=== PATIENT | female | born 1990 | race Caucasian/White ===

== ENCOUNTER 2016-11-03 14:44 | Outpatient (CLI) | payer SELFPAY ==
[2016-11-03 17:58] LABS: Urine Drugs of Abuse Note Disclamer
[2016-11-03 18:03] LABS: Basophils % (Auto) 0.2 % (0.0-1.8); Eosinophils % (Auto) 0.8 % (0.0-4.3); Hematocrit 33.3 % (30.3-42.9); Hemoglobin 10.4 gm/dl (10.1-14.3); Mean Corpuscular HGB Conc 31 % (30-34); Mean Corpuscular Volume 76 fl (79-97); Platelet Count 201 K/mm3 (140-440); Red Blood Count 4.42 M/mm3 (3.65-5.03); Red Cell Distribution Width 16.8 % (13.2-15.2); White Blood Count 10.8 K/mm3 (4.5-11.0)
[2016-11-03 18:04] LABS: Mean Corpuscular Hemoglobin 24 pg (28-32)
[2016-11-03 18:11] LABS: Bacteria,Urine 1+ /HPF (Negative); Bilirubin,Urine NEG (Negative); Blood,Urine NEG (Negative); Ketones,Urine NEG (Negative); Leukocyte Esterase,Urine LG (Negative); Mucus,Urine FEW /HPF; Nitrite,Urine NEG (Negative); Protein,Urine <15 mg/dL mg/dL (Negative); Urobilinogen,Urine < 2.0 mg/dL (<2.0)
[2016-11-03 18:49] LABS: HIV-1 Antigen p24 Non React (Non React); HIVR-1/2 Ab Non React (Non React)
--- NOTE | 2016-11-04 07:38 | Ultrasound Report ---
BIOPHYSICAL PROFILE: INDICATION: Vaginal bleeding. No care. COMPARISON: None similar during this gestation. TECHNIQUE: Transabdominal ultrasound with Doppler interrogation. 0 - breathing movements 2 - movements 2 - posture and tone 2 - Qualitative amniotic fluid volume 6 - TOTAL SCORE OF POSSIBLE 8 Heart Rate (bpm) 150
--- NOTE | 2016-11-04 10:36 | Ultrasound Report ---
OB ULTRASOUND GREATER THAN 14 WEEKS: INDICATION: Vaginal bleeding. No care. COMPARISON: None similar. TECHNIQUE: Transabdominal grayscale ultrasound with Doppler interrogation. Few translabial images to evaluate the cervix also obtained. Gestation: forde Position: cephalic Amniotic Fluid: WNL (7-24 cm) REINIER = 11.5 cm Placenta: anterior Placental Grade: I Heart Rate: 143 BPM Cervical length: 4.9 cm (Normal > 3 cm) ANATOMY VISUALIZED: Stomach Kidneys Bladder Diaphragm 4 Chamber Heart Heart 3 Vessel Cord Abd. Cord Insert SPINE VISUALIZED: Longitudinal Transverse Limited spine due to position The following are not demonstrated due to maternal body habitus or lie: neuroanatomy and spine. Cephalic index and HC/AC out of range. BPD: 9.2 cm = 37 w 3 d HC: 34 cm = 39 w 1 d AC: 33.7 cm = 37 w 4 d FL: 7.9 cm = 40 w 3 d HC/AC Ratio: 1.0 Cephalic Index: 80.2 Estimated Weight: 3485 grams Clinical age = 41 w 2 d EDC: 10-25-16 US Gest. Age = 38 w 5 d EDC: 11-12-16 CONCLUSION: Single, viable intrauterine gestation with ultrasound estimated age of 38 weeks and 5 days and EDC of 11/12/2016, currently in cephalic lie with details, as above. Please also correlate for a little over 2 weeks discrepancy with the clinical age. Thank you for the opportunity to participate in this patient's care.
== END 2016-11-03 17:29 | disposition home or self-care (01) ==
LOC: TRG 14:44
PROVIDERS: ATTEND Obstetrics & Gynecology Gynecology
DX: O46.93 Antepartum hemorrhage, unspecified, third trimester (principal); O47.1 False labor at or after 37 completed weeks of gestation; Z3A.38 38 weeks gestation of pregnancy
CPT/HCPCS: 36415; 76805; 76819; 81001; 85025; 86592; 86706; 86762; 86803; 86850; 86900; 86901; 87116; 87806; G0479; 80307

== ENCOUNTER 2016-11-20 21:57 | Inpatient (IN) | payer OTHER ==
[2016-11-20] MEDS ORDERED: PITOCin/NS 20 UNIT/1000ML DRIP 1,000 ML IV ONE (22:09)
[2016-11-20] MEDS: PITOCin/NS 20 UNIT/1000ML DRIP 1,000 ML IV SCH ×2 (22:20→23:25)
--- NOTE | 2016-11-20 22:26 | History and Physical Report ---
History of Present Illness Date of examination: 11/20/16 Date of admission: 11/20/16 21:57 Chief complaint: Just delivered History of present illness: Pt is a 26yo HF EDC 11/13/16; EGA 41 0/7 weeks presents to [facility] L&D and delivered in the parking lot. She did not receive care with this . Past History Past Medical History: no pertinent history Past Surgical History: no surgical history Family/Genetic History: none Social history: no significant social history, single - Obstetrical History : 3 Medications and Allergies Allergies Allergy/AdvReac Type Severity Reaction Status Date / Time No Known Allergies Allergy Verified 09/21/14 12:31 Home Medications Medication Instructions Recorded Confirmed Last Taken Type Kuu400/Iron Fumarate/FA/Dss 1 tab PO DAILY 09/21/14 09/26/14 09/24/14 10:00 History [ 19 Tablet] Review of Systems All systems: negative - Vital Signs Vital signs: Vital Signs Pulse BP 71 125/58 11/20/16 22:02 11/20/16 22:02 Temp Pulse Resp BP Pulse Ox 86 142/68 11/20/16 22:18 11/20/16 22:18 - Physical Exam Breasts: Positive: deferred Cardiovascular: Regular rate Lungs: Positive: Clear to auscultation Abdomen: Positive: normal appearance, soft Genitourinary (Female): Positive: normal external genitalia Uterus: Positive: enlarged Extremities: Positive: normal Results All other labs normal. Assessment and Plan - Patient Problems (1) Post term , 41 weeks Diagnosis Date: 11/20/16 Current Visit: No Status: Acute Plan to address problem: A: IUP @ 41 weeks s/p Precipitous delivery P: Admit to L&D for delivery of placenta Obtain labs
[2016-11-20] MEDS ORDERED: STADOL IV PRN (22:27)
[2016-11-20] MEDS ORDERED: MINERAL OIL PO PRN (22:27)
[2016-11-20] MEDS ORDERED: BRETHINE IVP PRN (22:27)
[2016-11-20] MEDS ORDERED: BRETHINE SUB-Q PRN (22:27)
[2016-11-20] MEDS ORDERED: ePHEDrine SULFATE IV PRN (22:27)
--- NOTE | 2016-11-20 22:27 | Procedure Note ---
OB Delivery Note - Delivery Date of Delivery: 11/20/16 Surgeon: ONESIMO TROY Estimated blood loss: 200cc - Vaginal Delivery presentation: vertex Delivery position: OA Intrapartum events: no care Delivery induction: none Delivery monitor: none Route of delivery: Delivery placenta: spontaneous Episiotomy: none Delivery laceration: none Anesthesia: none - Infant A at 1 minute: 8 at 5 minutes: 9 Infant Gender: Female (3761gms)
[2016-11-20] MEDS ORDERED: NORCO 5/325 PO PRN (22:31)
[2016-11-20] MEDS ORDERED: BENADRYL PO PRN (22:31)
[2016-11-20] MEDS ORDERED: ZOFRAN IV PRN (22:31)
[2016-11-20] MEDS ORDERED: TUCKS PAD TP PRN (22:31)
[2016-11-20] MEDS ORDERED: PHENERGAN PR PRN (22:31)
[2016-11-20] MEDS ORDERED: MILK OF MAGNESIA PO PRN (22:31)
[2016-11-20] MEDS ORDERED: DERMOPLAST TP PRN (22:31)
[2016-11-20] MEDS ORDERED: DULCOLAX PR PRN (22:31)
[2016-11-20] MEDS ORDERED: PHENERGAN PO PRN (22:31)
[2016-11-20] MEDS ORDERED: LANSINOH TP PRN (22:31)
[2016-11-20] MEDS ORDERED: TYLENOL PO PRN (22:31)
[2016-11-20 22:50] LABS: Hematocrit 33.7 % (30.3-42.9); Hemoglobin 10.6 gm/dl (10.1-14.3); Mean Corpuscular HGB Conc 31 % (30-34); Mean Corpuscular Volume 72 fl (79-97); Platelet Count 206 K/mm3 (140-440); Red Blood Count 4.71 M/mm3 (3.65-5.03); Red Cell Distribution Width 17.1 % (13.2-15.2); White Blood Count 11.6 K/mm3 (4.5-11.0)
[2016-11-20 22:51] LABS: Mean Corpuscular Hemoglobin 22 pg (28-32)
[2016-11-20] MEDS ORDERED: SODIUM CHLORIDE FLUSH SYRINGE 10 ML IV PRN (23:00)
[2016-11-20] MEDS ORDERED: LACTATED RINGERS 1,000 ML IV SCH (23:00)
[2016-11-20] MEDS ORDERED: PITOCin/NS 30 UNIT/500ML 500 ML IV SCH (23:00)
[2016-11-20] MEDS ORDERED: PITOCin/NS 20 UNIT/1000ML DRIP 1,000 ML IV SCH (23:00)
[2016-11-21] MEDS: MOTRIN PO SCH ×5 (00:09→23:20)
[2016-11-21 01:35] LABS: Hematocrit 34.7 % (30.3-42.9); Hemoglobin 10.9 gm/dl (10.1-14.3)
[2016-11-21] MEDS: COLACE PO SCH ×2 (10:30→23:20)
[2016-11-21] MEDS: FEOSOL PO SCH ×2 (10:30→23:20)
[2016-11-21] MEDS: PRENATAL VITAMIN PO SCH (10:31)
[2016-11-21 11:19] LABS: Hematocrit 29.3 % (30.3-42.9); Hemoglobin 9.2 gm/dl (10.1-14.3)
--- NOTE | 2016-11-21 11:29 | Progress Note ---
Assessment and Plan - Patient Problems (1) Post term , 41 weeks Diagnosis Date: 11/20/16 Current Visit: No Status: Resolved (2) (normal spontaneous vaginal delivery) Diagnosis Date: 11/21/16 Current Visit: No Status: Resolved Plan to address problem: A: S/P - PPD #1 Doing well P: May go home tomorrow. Subjective - Subjective Date of service: 11/21/16 Principal diagnosis: s/p - PPD #1 Interval history: Pt is feeling well without complaints. Bleeding improved. Patient reports: appetite normal, voiding normally, pain well controlled, flatus , ambulating normally : doing well, bottle feeding Objective - Vital Signs Latest vital signs: Vital Signs Temp Pulse Pulse Resp BP BP 11/21/16 08:55 97.9 F 76 20 98/55 11/21/16 06:06 18 11/21/16 05:19 18 11/21/16 04:19 18 11/21/16 04:15 97.8 F 51 L 18 100/54 11/21/16 01:09 18 11/21/16 00:09 18 11/21/16 00:05 97.9 F 58 L 18 108/60 11/20/16 23:17 59 L 108/59 11/20/16 23:02 63 110/57 11/20/16 22:47 65 109/58 11/20/16 22:40 18 11/20/16 22:32 66 124/58 11/20/16 22:20 97.0 F L 18 11/20/16 22:18 86 142/68 11/20/16 22:02 71 125/58 Intake and Output 11/20/16 11/21/16 11/21/16 22:59 06:59 14:59 Intake Total 1365 120 Output Total 1100 600 Balance 265 -480 Intake: Oral 360 120 Other 1005 Output: Urine 1100 600 Void 1100 600 Other: Intake, Other Source Saline Solution Total, Intake Amount 120 120 Total, Output Amount 800 600 # Voids Void 1 Weight 76.204 kg Estimated Blood Loss 200 - Exam Breasts: Present: deferred Cardiovascular: Present: Regular rate Lungs: Present: Clear to auscultation Abdomen: Present: normal appearance, soft Uterus: Present: normal, firm, fundal height below umbilicus Extremities: Present: normal - Labs Labs: Abnormal lab results 11/20/16 Range/Units 22:05 WBC 11.6 H (4.5-11.0) K/mm3 MCV 72 L (79-97) fl MCH 22 L (28-32) pg RDW 17.1 H (13.2-15.2) % Laboratory Tests 11/20/16 11/20/16 11/20/16 22:05 22:05 22:05 WBC 11.6 H RBC 4.71 Hgb 10.6 10.9 Hct 33.7 34.7 MCV 72 L MCH 22 L MCHC 31 RDW 17.1 H Plt Count 206 Blood Type A POSITIVE Antibody Screen Negative 11/21/16 06:00 WBC RBC Hgb Hct MCV MCH MCHC RDW Plt Count Blood Type A POSITIVE Antibody Screen Negative
--- NOTE | 2016-11-21 11:41 | Discharge Summary ---
Providers - Providers Date of Admission: 11/20/16 21:57 Date of discharge: 11/22/16 Attending physician: UZIEL TROY Primary care physician: UZIEL TROY Hospitalization Reason for admission: active labor, other (No care) Delivery: Episiotomy: none Laceration: none Other procedures: none complications: none Discharge diagnosis: IUP at term delivered baby: male Hospital course: Unremarkable. Condition at discharge: Good Disposition: DISCHARGED TO HOME OR SELFCARE - Discharge Diagnoses (1) Post term , 41 weeks Status: Resolved (2) (normal spontaneous vaginal delivery) Status: Resolved Plan - Discharge Medications Prescriptions: Ferrous Sulfate [Feosol 325 MG tab] 325 mg PO BID #60 tablet Ibuprofen [Motrin 600 MG tab] 600 mg PO Q6HR #30 tablet Vit-Fe Fumar-FA [ Vitamin] 1 each PO QDAY #30 tablet - Provider Discharge Summary Activity: routine, no sex for 6 weeks, no heavy lifting 4 weeks, no strenuous exercise Diet: routine Instructions: routine Additional instructions: [] Smoking cessation referral if applicable(refer to patient education folder for contact #) [] Refer to [facility]'s [facility] Center Booklet Call your doctor immediately for: * Fever > 100.5 * Heavy vaginal bleeding ( >1 pad per hour) * Severe persistent headache * Shortness of breath * Reddened, hot, painful area to leg or breast * Drainage or odor from incision. * Keep incision clean and dry at all times and follow doctor's instructions regarding bathing/showering - Follow up plan Follow up: UZIEL TROY MD [Primary Care Provider] - 6 Weeks
[2016-11-21 18:47] LABS: HIV-1 Antigen p24 Non React (Non React); HIVR-1/2 Ab Non React (Non React)
[2016-11-21] MEDS ORDERED: FLUARIX QUAD 2016-2017(36 MOS+) IM ONE (19:52)
[2016-11-21] MEDS ORDERED: M-M-R II VACCINE SUB-Q ONE (22:31)
[2016-11-22] MEDS: MOTRIN PO SCH ×3 (05:11→18:05)
[2016-11-22] MEDS ORDERED: BOOSTRIX IM ONE (06:00)
[2016-11-22] MEDS: FEOSOL PO SCH (11:31)
[2016-11-22] MEDS: COLACE PO SCH (11:31)
[2016-11-22] MEDS: PRENATAL VITAMIN PO SCH (11:31)
[2016-11-22] MEDS ORDERED: FLUARIX QUAD 2016-2017(36 MOS+) IM ONE (12:00)
[2016-11-22 16:58] VITALS: BP 122/65
== END 2016-11-22 22:00 | disposition home or self-care (01) | DRG 776 ==
LOC: LD 21:57 → OB 23:53
PROVIDERS: ADMIT Obstetrics & Gynecology; ATTEND Obstetrics & Gynecology
DX: Z39.0 Encounter for care and examination of mother immediately after delivery (principal)
CPT/HCPCS: 36415; 85014; 85018; 85027; 86592; 86706; 86762; 86850; 86900; 86901; 87806; 88307; 90471; 90686; 90715; G0008; J0595; J2590

== ENCOUNTER 2016-11-24 12:52 | Emergency (ER) | payer SELFPAY ==
[2016-11-24 13:33] VITALS: BP 114/69
--- NOTE | 2016-11-24 14:32 | Emergency Department Report ---
Chief Complaint: Vaginal Bleeding Stated Complaint: VAG BLEED/4 DAYS POST Time Seen by Provider: 11/24/16 14:22 - HPI History of Present Illness: 26-year-old female comes in for having some vaginal bleeding as well as feels like the symptoms hanging from her. Patient reports that she delivered on Wednesday she noticed tissue-like substance hanging from her vaginal area today. She complains of pain 7 out of 10. Patient reports she's gone through 2 pads since she's been here at the hospital today. She reports that she delivered here at the hospital with Dr. aJck as her OB specialist - Exam Vital Signs: Vital Signs 11/24/16 13:29 Temperature 98.0 F Pulse Rate 81 Respiratory 16 Rate Blood Pressure 114/69 O2 Sat by Pulse 98 Oximetry Physical Exam: Her to 3, cardiovascular S1-S2 regular rate and rhythm vaginal evaluation is able to gather what appears to be placenta or extra tissue. MSE screening note: Focused history and physical exam performed. Due to findings the following was ordered: About her evaluated patient able to collect the tissue place it and a will order urinalysis CBC ED Disposition for MSE Condition: Stable
[2016-11-24 15:23] LABS: Hemoglobin 10.5 gm/dl (10.1-14.3); Mean Corpuscular HGB Conc 31 % (30-34); Mean Corpuscular Hemoglobin 23 pg (28-32); Mean Corpuscular Volume 74 fl (79-97); Platelet Count 189 K/mm3 (140-440); Red Blood Count 4.61 M/mm3 (3.65-5.03); Red Cell Distribution Width 17.9 % (13.2-15.2); White Blood Count 7.8 K/mm3 (4.5-11.0)
--- NOTE | 2016-11-24 16:24 | Ultrasound Report ---
ULTRASOUND PELVIS COMPLETE - TRANSABDOMINAL AND TRANSVAGINAL: INDICATION: Status post vaginal delivery yesterday. Passing tissue. Evaluate for retained products of conception. COMPARISON: None similar. FINDINGS: Transabdominal and transvaginal pelvic sonography demonstrates an anteverted, uterus estimated at 13.9 x 9 x 12.5 cm. Endometrial stripe appears unremarkable towards the fundus transabdominally at approximately 1 cm, image 3, though widened to about 2.7 cm along its mid aspect and somewhat heterogeneously echogenic as on image 4 with poor delineation from the myometrium. No significant pelvic free fluid. Unremarkable right ovary measuring 5.5 x 2.3 x 3.6 cm. Left ovary obscured. CONCLUSION: 1. Mild heterogeneous echogenic prominence/thickening along the mid endometrium, presumed hemorrhagic products, though retained products of conception not entirely excluded in the given setting. 2. Unremarkable right ovary. Left ovary not visualized. Thank you for the opportunity to participate in this patient's care.
[2016-11-24 16:29] LABS: Bilirubin,Urine NEG (Negative); Blood,Urine LG (Negative); Ketones,Urine NEG (Negative); Leukocyte Esterase,Urine MOD (Negative); Mucus,Urine FEW /HPF; Nitrite,Urine NEG (Negative); Protein,Urine <15 mg/dL mg/dL (Negative); Urobilinogen,Urine < 2.0 mg/dL (<2.0)
--- NOTE | 2016-11-26 18:34 | ED Elopement Review ---
ED Pt Elopement review - Results review Lab results: Laboratory Tests 11/24/16 11/24/16 14:58 16:00 WBC 7.8 RBC 4.61 Hgb 10.5 Hct 34.0 MCV 74 L MCH 23 L MCHC 31 RDW 17.9 H Plt Count 189 Urine Color Yellow Urine Turbidity Cloudy Urine pH 8.0 H Ur Specific Nogal 1.016 Urine Protein <15 mg/dl Urine Glucose (UA) Neg Urine Ketones Neg Urine Blood Lg Urine Nitrite Neg Urine Bilirubin Neg Urine Urobilinogen < 2.0 Ur Leukocyte Esterase Mod Urine WBC (Auto) 55.0 H Urine RBC (Auto) 110.0 U Epithel Cells (Auto) 2.0 Urine Mucus Few - Call Back decision Pt Call Back Decision: Pt to F/U with PMD
== END 2016-11-24 22:27 | disposition left against medical advice (07) ==
LOC: ED 12:52
DX: N93.9 Abnormal uterine and vaginal bleeding, unspecified (principal); Z53.21 Procedure and treatment not carried out due to patient leaving prior to being seen by health care provider
CPT/HCPCS: 36415; 76830; 76856; 81001; 85027